=== PATIENT | female | born 1960 | race African-American/Black ===

== ENCOUNTER → 2021-01-19 | Outpatient (CLI) | payer OTHER ==
--- NOTE | 2021-01-19 12:48 | RAD ---
EXAM: Bilateral breast sonogram; sonographic guided left breast biopsy; sonographic guided left axill mayi biopsy; sonographic guided biopsy clip placement; left breast postbiopsy mammogram. HISTORY: 61-year-old female presents for second look sonography and potential biopsy of lesions withi n both breasts and the left axilla demonstrated on an MRI performed at an outside facility. TECHNIQUE: The risks of the procedure were discussed with the patient and written and verbal consent was obtained. A timeout was performed. Sonographic imaging of the right breast demonstrates a solid circumscribed nonvascular hypoechoic nod ule at the 7:00 position 6 cm from the nipple measuring 9 mm, the appearance of which favors a fibroa denoma. There is a similar-appearing bilobed suspected fibroadenoma at the 9:00 position 7 cm the nip ple measuring 1.1 cm. There is also a suspected fibroadenoma containing internal calcification at the 10:30 position 9 cm from the nipple measuring 1.3 cm. Finally, there is a circumscribed solid nonvas cular hypoechoic nodule with suspected internal cystic components at the 11:00 position 7 cm from the nipple measuring 1.9 cm. This is also likely a fibroadenoma. These lesions are reportedly stable com pared to multiple mammograms and the lesions demonstrate benign features on the recent MRI. There are right axillary lymph nodes, one of which measures 2.0 cm in long axis with a mildly prominent cortex measuring 4 mm in thickness. This maintains a benign fatty hilum. These lymph nodes appear to be sli ghtly decreased in size compared to the prior MRI, favoring a resolving reactive etiology. This may b e due to reported Covid-19 vaccination prior to the MRI. Sonographic imaging of the left breast demonstrates an irregular hypoechoic shadowing mass at the 12: 30 position 10 cm from the nipple measuring 1.9 cm. There are small suspected adjacent satellite mass es measuring 10 mm at the 1:00 position 6 cm from the nipple and 12 mm at the 1:00 position 5 cm from the nipple. There is a prominent left axillary lymph node with thickened cortex. Given the aforementioned findings and findings on comparison studies, the decision was made to procee d with biopsy of the aforementioned left breast mass at the 12:30 position 10 cm from the nipple, the dominant satellite lesion measuring 12 mm at the 1:00 position 5 cm from the nipple and the most richardson picious left axillary lymph node. The skin overlying these lesions was sterilely prepped, draped and infiltrated with 1 percent lidocai ne. Multiple core samples were obtained through the lesions of concern with sonographic guidance usin g separate biopsy devices and biopsy clips were advanced into the lesions. Manual compression was teddy ntained until hemostasis was achieved. Sterile bandages were placed. A postbiopsy mammogram demonstrates the biopsy clips at the 12:30 and 1:00 positions, with surroundin g increased density due to the lesions of concern and postbiopsy changes. The biopsy clip within the left axillary lymph node is excluded from the [id number] due to location. The patient tolerated th e procedure without difficulty and was discharged in stable condition. COMPARISON: MRI dated 12/22/2020 and mammogram and left breast sonogram dated 08/31/2020. IMPRESSION: 1. Successful sonographic guided biopsy of a 1.9 cm mass at the 12:30 position of the left breast 10 cm from the nipple, a 12 mm satellite mass at the 1:00 position 6 cm from the nipple and a suspicious left axillary lymph node. An addendum to this report will be submitted when pathology results are av ailable. 2. Several similar-appearing circumscribed nonvascular nodules within the right breast measuring up t o 1.9 cm, described in detail above. The combined sonographic and MRI characteristics and interval st ability of these lesions favors fibroadenomas. Note is made that the patient will be due for mammogra phy of the right breast in approximately 7 months according to a previously established mammography i nterval. Sonographic imaging of the right breast can be performed at that time to confirm longer-term sonographic stability. Electronically signed by: Blanca Mckeon MD (01/19/2021 12:46 PM) [id number]
--- NOTE | 2021-01-24 15:17 | PATHOLOGY ---
[facility] Accession Number: [id number] . 01 Material submitted: . PART A: breast - LEFT BREAST TISSUE 1230 10CM. Modifiers: left PART B: axillary tail of breast - LEFT AXILLARY NODE TISSUE. Modifiers: left PART C: breast - LEFT BREAST TISSUE 100 5CM. Modifiers: left . 01 Clinical history: . LEFT BREAST MASS 1230 10CM FN LEFT BREAST BIOPSY ABNORMAL LT AXILLARY NODE LEFT AXILLARY BIOPSY LEFT BREAST MASS 100 5CM FN LEFT BREAST BIOPSY . 02 Diagnosis: A. Breast and skeletal muscle tissue, left breast mass 12:30 10 cm from nipple needle biopsies: - Invasive lobular carcinoma. See comment. . B. Segments of lymph node and fibroadipose tissue, left axillary node needle biopsies: - Negative for tumor. . C. Breast tissue, left breast mass 1:00 5 cm from nipple needle biopsies: - Invasive lobular carcinoma, focal. - Stromal fibrosis with focal fibroadenomatous change and duct ectasia. (JPM:yani/[facility]; 01/20/2021) [facility] [place]/24/[place] 1031 Local . 02 Comment: Sections of the right breast mass 12:30 10 CM from nipple needle biopsy reveal an invasive mammary carcinoma. The latter is composed of relatively small tumor cells which are present in cords infiltrating a fibrous stroma. The tumor cells have small amounts of pale eosinophilic cytoplasm, and possess relatively small rounded to ovoid hyperchromatic nuclei. The tumor shows no significant mitotic activity. The invasive carcinoma measures up to 1.3 cm in greatest dimension on the glass slide. Properly controlled immunoperoxidase stains are obtained on block A1 and yield the following results: AE1/AE3: Tumor cells positive E-cadherin: Tumor cells negative. . The morphologic and immunophenotypic features are supportive of the diagnosis of an invasive lobular carcinoma. There is no evidence of tumor invasion of skeletal muscle tissue. Breast prognostic studies will be obtained on block A1, the results of which will be reported separately. . Sections of the left axillary node biopsy reveal segments of lymph node and fibroadipose tissue. The lymph node shows focal sinus histiocytosis. Properly controlled immunoperoxidase stains for AE1/AE3 are obtained and yield the following results: AE1/AE3 (B1): Negative for tumor AE1/AE3 (B2): Negative for tumor . Sections of the left breast mass 1:00 5 cm from nipple needle biopsy reveal an invasive mammary carcinoma which shows similar features to that of specimen A. The invasive carcinoma measures up to 5 mm in greatest dimension on the glass slide. Immunoperoxidase stains are obtained on block C1 and yield the following results: AE1/AE3 (C1): Tumor cels positive E-cadherin (C1): Tumor cells negative. . The morphologic and immunophenotypic findings are again supportive of the diagnosis of an invasive lobular carcinoma. The biopsy also shows stromal fibrosis with focal fibroadenomatous change and duct ectasia. The case is also examined by Dr. Ely, who concurs with the diagnosis. ([facility]PM:[facility]; 01/24/2021) . Special stains performed: Immunoperoxidase for AE1/AE3 and E-cadherin on A1 and AE1/AE3 and E-cadherin on C1, AE1/AE3 on B1 and AE1/AE3 on B2 . 02 Electronically signed: . Woody Stanley MD, Pathologist NPI- [id number] . 01 Gross description: . A. Received in formalin labeled "Lupe Sanchez, left breast 1230 10 cm FN" are multiple thakur-yellow cylindrical soft tissue cores measuring in aggregate 1.6 x 0.6 x 0.2 cm. The specimen is submitted entirely in cassettes A1-A3. The specimen is removed from the patient at 1133 and placed in formalin at 1134 on 01/19/2021. The specimen is removed from formalin at 2150 on 01/19/2021. . B. Received in formalin labeled "Lupe Sanchez, left axillary node" are 2 thakur-pink cylindrical soft tissue cores measuring in aggregate 2.0 x 0.6 x 0.3 cm. The specimen is submitted entirely in cassettes B1-B2. The specimen is removed from the patient at 1141 and placed in formalin at 1142 on 01/19/2021. The specimen is removed from formalin at 2150 on 01/19/2021. . C. Received in formalin labeled "Lupe Sanchez, left breast 100 5 cm FN" are multiple yellow-thakur cylindrical soft tissue cores measuring in aggregate 1.5 x 0.6 x 0.2 cm. The specimen is submitted entirely in cassettes C1-C3. The specimen is removed from the patient at 1153 and placed in formalin at 1154 on 01/19/2021. The specimen is removed from formalin at 2150 on 01/19/2021. ([facility] [place]; 01/19/2021) [facility] 01/19/2021 1455 Local . 02 Pathologist provided ICD-10: C50.912, N60.32, D24.2, N60.42 . 02 CPT . 698942, 666858, [id number], [id number], [id number] Specimen Comment: A courtesy copy of this report has been sent to [phone], [phone] Specimen Comment: [id number] Specimen Comment: Report sent to / DR REYNOLDS Specimen Comment: A duplicate report has been generated due to demographic updates. Performed at: 01 [facility] [address], [place], [place] [id number] MD Rupesh Silverman MD Phone: [phone] Performed at: 02 [facility] [address], [place] [id number] MD Woody Stanley MD Phone: [phone]
== END | disposition home or self-care (01) ==
LOC: US 10:02
PROVIDERS: ATTEND Specialist
DX: R92.8 Other abnormal and inconclusive findings on diagnostic imaging of breast (principal); C50.912 Malignant neoplasm of unspecified site of left female breast; N60.32 Fibrosclerosis of left breast; D24.2 Benign neoplasm of left breast; N60.42 Mammary duct ectasia of left breast; Z79.899 Other long term (current) drug therapy; Z98.890 Other specified postprocedural states
CPT/HCPCS: 10005; 19083; 19084; 76641; 77065; 88305; 88341; 88342; A4648